=== PATIENT | male | born 1990 | race Caucasian/White ===

== ENCOUNTER 2018-10-26 18:16 | Emergency (ER) | payer OTHER ==
[~2018-10-26] VITALS: Ht 170.2 cm; Wt 61.2 kg
--- NOTE | 2018-10-26 18:30 | NUR ---
PATIENT BIB [employer]. PATIENT A&O X 3, NO ACUTE DISTRESS, DENIES PAIN OR DISCOMFORT.
[2018-10-26 18:49] VITALS: BP 136/84
[2018-10-26] MEDS ORDERED: LORAZEPAM INJ 2 MG/ML VIAL IV ONE (19:00)
[2018-10-26] MEDS ORDERED: IV NS 0.9% 1,000 ML BAG IV ONE (19:00)
[2018-10-26] MEDS ORDERED: ONDANSETRON HCL/PF 4 MG/2 ML VIAL IV ONE (19:00)
--- NOTE | 2018-10-26 19:43 | NUR ---
REPORT GIVEN TO SHANELLE BADILLO FOR [facility]IN. PATIENT RESTING ON BED. NO ACUTE DISTRESS
[2018-10-26] MEDS ORDERED: LORAZEPAM 0.5 MG TABLET ONE (19:50)
[2018-10-26] MEDS ORDERED: ONDANSETRON HCL 4 MG/5 ML SOLUTION ONE (19:50)
--- NOTE | 2018-10-26 19:57 | NUR ---
PATIENT MEDICALLY CLEARED FOR BOOKING, VSS. Patient discharged to [facility] custody in stable condition. Written and verbal after care instructions given. Patient verbalizes understanding of instruction.
[2018-10-26] MEDS ORDERED: ONDANSETRON HCL 4 MG/5 ML SOLUTION PO ONE (20:00)
[2018-10-26] MEDS ORDERED: LORAZEPAM 1 MG TABLET PO ONE (20:00)
== END 2018-10-26 19:58 ==
LOC: ER 18:20
DX: F11.23 Opioid dependence with withdrawal (principal)
CPT/HCPCS: Q0162